=== PATIENT | male | born 1970 | race Caucasian/White ===

== ENCOUNTER 2017-08-10 21:41 | Emergency (ER) | payer OTHER ==
[~2017-08-10] VITALS: Ht 170.2 cm; Wt 81.6 kg
--- NOTE | 2017-08-10 22:00 | NUR ---
Pt BIB SELF, ACCOMPANIED BY SISTER. Pt STATES THAT HE IS TRYING TO STOP SMOKEING HEROIN. LAST SMOKED HEROIN LAST NIGHT AND SNIFFED SOME COCAINE. IS NOW EXPERIENCING SOME WITHDRAWAL. C/O N/V/D, CHILLS, AND HEAT FLASHES. Pt WAITING IN ER BED 15. VSS.
--- NOTE | 2017-08-10 22:18 | NUR ---
BEING SEEN BY MD AT BEDSIDE
--- NOTE | 2017-08-10 22:31 | NUR ---
Patient discharged to home in stable condition. Written and verbal after care instructions given. Patient verbalizes understanding of instruction. Pt left on foot, with steady gait.
[2017-08-10 22:37] VITALS: BP 139/89
== END 2017-08-10 22:31 | disposition home or self-care (01) ==
LOC: ER 21:46
DX: Z00.8 Encounter for other general examination (principal); R11.0 Nausea; F17.200 Nicotine dependence, unspecified, uncomplicated
CPT/HCPCS: 99281; A4606; Z7610; Z7502